=== PATIENT | female | born 2005 | race Caucasian/White ===

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

== ENCOUNTER 2024-06-21 10:09 | Emergency (ER) | payer OTHER ==
[~2024-06-21] VITALS: Ht 157.5 cm; Wt 126.1 kg
[2024-06-21] MEDS ORDERED: LEVOTHYROXINE25 MCG PO (11:10)
[2024-06-21 12:41] LABS: HEMATOCRIT 38.5 % (36.0-45.00); HEMOGLOBIN 12.6 g/dL (12.0-15.00); MEAN CELL VOLUME 80.6 fL (80.00-100.00); MEAN CORPUSCULAR HEMOGLOBIN 26.4 pg (27.00-32.0); MEAN CORPUSCULAR HGB CONC 32.7 g/dl (32.0-36.0); PLATELET COUNT 342 K/uL (150-450); RED BLOOD COUNT 4.77 M/uL (4.00-6.00); RED CELL DISTRIBUTION WIDTH 15.4 % (11.5-14.5)
[2024-06-21 13:26] LABS: CALCIUM 9.4 mg/dL (8.5-10.1); CREATININE SERUM 0.72 mg/dL (0.55-1.02); GFR 102.25; POTASSIUM 4.25 mEq/L (3.5-5.1)
== END 2024-06-21 13:51 | disposition home or self-care (01) ==
LOC: ER 10:09
PROVIDERS: General Practice
DX: R07.89 Other chest pain (principal)

== ENCOUNTER 2025-03-26 11:32 | Emergency (ER) | payer OTHER ==
[~2025-03-26] VITALS: Ht 157.5 cm; Wt 122.5 kg
[~2025-03-26 11:32] MED LIST: LEVOTHYROXINE25 MCG PO
[2025-03-26] MEDS ORDERED: CEFTRIAXONE SODIUM 1,000 MG VIAL IV ONE (13:30)
[2025-03-26] MEDS ORDERED: ONDANSETRON HCL 2 MG/ML VIAL IV ONE (13:30)
[2025-03-26] MEDS ORDERED: FAMOTIDINE/PF 20 MG/2 ML VIAL IV ONE (13:30)
[2025-03-26] MEDS ORDERED: 0.9 % SODIUM CHLORIDE 1,000 ML IV SCH (13:30)
[2025-03-26 14:32] LABS: BASO % 0.1 % (0.1-1.2); EOS # 0.01 (0.04-0.54); EOS % 0.1 % (0.7-7.0); LYMPH # 1.00 (1.18-3.74); LYMPH % 12.9 % (19.3-53.1); MEAN PLATELET VOLUME 9.60 fl (9.4-12.4); MONO # 0.31 (0.24-0.82); MONO % 4.0 % (4.7-12.5); NEUT # 6.32 (1.56-6.13); NEUT % 81.9 % (34.0-71.1); RED CELL DISTRIBUTION WIDTH 14.7 % (11.6-14.4)
[2025-03-26 14:51] LABS: ERYTHROCYTE SEDIMENTATION RATE 17 mm/hr (0-20)
[2025-03-26 15:11] LABS: ALT/SGPT 16.0 U/L (12-78); AST/SGOT 10.0 U/L (15-37); BILIRUBIN TOTAL 0.62 mg/dL (0.3-1.2); BUN CREA RATIO 19.0 (7.0-25.0); CREATININE SERUM 0.63 mg/dL (0.55-1.02); GFR 118.16; GLOBULINA 4.5 G/DL (2.4-3.5); GLUCOSE FASTING 95.0 mg/dL (65-100); OSMOLALITY SERUM 279.0 MOSM/KG (275-295)
[2025-03-26 15:26] LABS: COVID-19 AG NEGATIVE (NEGATIVE)
[2025-03-26 16:56] LABS: URINE APPEARANCE Cloudy; URINE BILIRRUBIN Negative (NEGATIVE); URINE BLOOD Negative; URINE COLOR Yellow; URINE GLUCOSE Negative (NEGATIVE); URINE KETONE Trace (NEGATIVE); URINE LEUKOCYTE Negative; URINE NITRATE Negative; URINE PROTEIN Trace (NEGATIVE); URINE UROBILINOGEN 0.2 E.U./dl
[2025-03-26 17:00] LABS: URINE BACTERIA 1317.6 uL (0.0-1933); URINE EPITHELIAL CELLS 22.7 uL (0.0-38.8); URINE RBC 9.9 uL (0.0-20.8); URINE WBC 9.5 uL (0.0-23.2)
[2025-03-26 17:24] LABS: URINE CAST 0.73 uL (0.0-1.40)
[2025-03-26] MEDS ORDERED: METRONIDAZOLE500 MG PO (18:05)
[2025-03-26] MEDS ORDERED: CIPRO500 MG PO (18:05)
[2025-03-26] MEDS ORDERED: PEPCID AC20 MG PO (18:05)
[2025-03-26] MEDS ORDERED: PROBIOTIC1 EAC2 PO (18:05)
[2025-03-26] MEDS ORDERED: LEVSIN/SL0.125 MG SL (18:05)
== END 2025-03-26 18:13 | disposition home or self-care (01) ==
LOC: ER 11:32
PROVIDERS: Student in an Organized Health Care Education/Training Program
DX: K52.9 Noninfective gastroenteritis and colitis, unspecified (principal); K52.89 Other specified noninfective gastroenteritis and colitis; A04.9 Bacterial intestinal infection, unspecified; A08.8 Other specified intestinal infections; R10.9 Unspecified abdominal pain; I10 Essential (primary) hypertension; E03.8 Other specified hypothyroidism; Z20.822 Contact with and (suspected) exposure to COVID-19; Z88.6 Allergy status to analgesic agent